=== PATIENT | female | born 1980 | race Caucasian/White ===

== ENCOUNTER 2018-04-28 08:32 | Inpatient (IN) ==
--- NOTE | 2018-04-28 09:20 | P.HPOB ---
MATH AND PHYSICS INSTRUCTOR - Consult Note Patient Name: Emmy Philip Date of : 84 Patient Status: Clinical Attending Provider: Robi Charles MD Date: 0900 Initialization Date: 04/15/18 18:24 History of Present Illness Consult date: 04/15/18 Reason for Consult: Repeat Primary Care Physician: [facility] Chief Complaint: BTL History of Present Illness: 38-year-old at 39 weeks initially wanted a now she is requesting a repeat delivery declines desiring tubal sterilization. This has been uncomplicated she did have one episode of chest pain she was seen in triage and subsequently had cardiac monitoring workup was negative. Her previous delivery for a macrosomic infant and history of preeclampsia currently on baby aspirin she is aware are made aware today to stop as soon as possible. Review of Systems All other systems reviewed negative except as stated in HPI PMFSH - History History Provided By: Patient - Surgical History Surgical History: Surgical History (Last Updated 04/03/18 @ 14:33 by Jewell Araiza) Hx of section S/P dilatation and curettage - Tobacco History Second Hand Smoke Exposure: No Smoking Status: Never smoker - Alcohol History How Often Do You Have a Drink Containing Alcohol: Never - Substance Use History Substance History: No History of Abuse Medications and Allergies Allergies Allergy/AdvReac Type Severity Reaction Status Date / Time No Known Allergies Allergy Unverified 04/03/18 12:55 Exam - Constitutional no acute distress - Routine HEENT Exam Head: Present: normocephalic ENT: Present: mucous membranes moist - Routine Respiratory Exam Present: CTA bilaterally - Routine Cardiovascular Exam Present: RRR - Routine Abdominal Exam Present: soft Comments: Gravid reports good movements - Routine Extremities Exam Present: calf tenderness - Routine Skin Exam Present: intact - Routine Neurological Exam Present: alert, oriented X3 Assessment and Plan - Diagnosis (1) Previous delivery affecting Code(s): O34.219 - Maternal care for unspecified type scar from previous delivery Status: Acute (2) 39 weeks gestation of Code(s): Z3A.37 - 39 weeks gestation of Status: Acute - Plan Alternatives benefits complications discussed patient expressed verbal understanding preop Intra-Op and postop expectations reviewed patient is scheduled for April 28, 2018 at 10:30 AM.
[2018-04-28] MEDS ORDERED: ceFAZolin 2 GM Premix Inj 2 GM/50 ML PIGGYBACK IV.SIG PRN (09:21)
[2018-04-28] MEDS ORDERED: Citric Acid/Sodium Citrate Liq 30 ML UDC PO SCH (09:30)
[2018-04-28 09:32] LABS: Baso % (Auto) 0.3 % (0.0-2.0); Eos # (Auto) 0.1 th/mm3 (0.0-0.4); Eos % (Auto) 0.9 % (0.0-4.0); Hematocrit 39.2 % (35.0-46.0); Hemoglobin 13.4 gm/dL (11.6-15.3); Lymph # (Auto) 1.9 th/mm3 (1.0-4.8); Lymph % (Auto) 17.9 % (9.0-44.0); Mean Corpuscular HGB Conc 34.1 % (32.0-36.0); Mean Corpuscular Volume 96.7 fL (80.0-100.0); Mean Platelet Volume 8.2 fL (7.0-11.0); Mono # (Auto) 0.8 th/mm3 (0.0-0.9); Mono % (Auto) 7.6 % (0.0-8.0); Neut # (Auto) 7.6 th/mm3 (1.8-7.7); Neut % (Auto) 73.3 % (16.0-70.0); Platelet Count 218 th/mm3 (150-450); Red Blood Count 4.05 mil/mm3 (4.00-5.30); Red Cell Distribution Width 15.9 % (11.6-17.2); White Blood Count 10.4 th/mm3 (4.0-11.0)
[2018-04-28] MEDS ORDERED: Morphine Sulfate PF Inj 5 MG/10 ML Ampul ONE (09:40)
[2018-04-28 10:00] LABS: Bacteria,Urine Moderate /hpf; Bilirubin,Urine Negative (Negative); Clarity,Urine Cloudy (Clear); Color,Urine Yellow (Yellw/Straw); Glucose,Urine (UA) Negative (Negative); Leukocyte Esterase,Urine Negative (Negative); Mucus,Urine Few /lpf (Occasional); Nitrite,Urine Negative (Negative); Specific Gravity,Urine 1.017 (1.002-1.035); Squamous Epithelial Cell,Urine 80 /hpf (0-5)
[2018-04-28 10:05] LABS: Amphetamine Screen,Urine Neg (Neg); Barbiturate Screen,Urine Neg (Neg); Cannabinoid Screen,Urine Neg (Neg); Cocaine Screen,Urine Neg (Neg)
[2018-04-28 10:08] LABS: Opiate Screen,Urine Neg (Neg)
--- NOTE | 2018-04-28 12:42 | P.PN ---
Subjective Interval history: Patient was seen and examined and consented for delivery. Risks, benefits, and alternatives were discussed at length with the patient. Discussed risks of pain, infection, bleeding, injury to other organs like the bladder/bowel/nerves/vessels, injury to the baby, need for repeat operation, need for hysterectomy, need for blood transfusion, wound infection or breakdown. All the patient's questions were answered. We discussed that surgical risks increase with each subsequent surgery. Consent was signed. heart tones are reassuring. Physical Exam Vital signs: Vital Signs 04/28/18 09:11 04/28/18 09:12 Temperature 98.3 F Pulse Rate 101 H Respiratory Rate 16 Blood Pressure 119/80 Intake & Output 04/27/18 04/28/18 04/28/18 18:59 06:59 18:59 Weight 74.843 kg Other: Weight On Admission 74.843 kg Results - Labs CBC & Chem 7: 04/28/18 09:00 Laboratory Results - last 24 hr 04/28/18 04/28/18 04/28/18 08:40 08:40 09:00 WBC 10.4 RBC 4.05 Hgb 13.4 Hct 39.2 MCV 96.7 MCH 33.0 MCHC 34.1 RDW 15.9 Plt Count 218 MPV 8.2 Neut % (Auto) 73.3 H Lymph % (Auto) 17.9 [place] % (Auto) 7.6 Eos % (Auto) 0.9 Baso % (Auto) 0.3 Neut # (Auto) 7.6 Lymph # (Auto) 1.9 [place] # (Auto) 0.8 Eos # (Auto) 0.1 Baso # (Auto) 0.0 WBC Differential . Differential Comment Auto diff final Urine Color Yellow Urine Clarity Cloudy H Urine pH 6.0 Ur Specific [place] 1.017 Urine Protein Negative Urine Glucose (UA) Negative Urine Ketones Negative Urine Occult Blood Negative Urine Nitrate Negative Urine Bilirubin Negative Urine Urobilinogen Less than 2 Ur Leukocyte Esterase Negative Urine WBC 1 Ur Squamous Epith Cells 80 Urine Bacteria Moderate H Urine Mucus Few H Micro UA Comment Culture indicated Ur Microscopic Review Not Reportable Urine Culture Comments Culture indicated Urine Opiates Screen Neg Ur Barbiturates Screen Neg Ur Amphetamines Screen Neg U Benzodiazepines Scrn Neg Urine Cocaine Screen Neg U Cannabinoids Screen Neg Blood Type Blood Type Recheck Antibody Screen 04/28/18 09:00 WBC RBC Hgb Hct MCV MCH MCHC RDW Plt Count MPV Neut % (Auto) Lymph % (Auto) [place] % (Auto) Eos % (Auto) Baso % (Auto) Neut # (Auto) Lymph # (Auto) [place] # (Auto) Eos # (Auto) Baso # (Auto) WBC Differential Differential Comment Urine Color Urine Clarity Urine pH Ur Specific [place] Urine Protein Urine Glucose (UA) Urine Ketones Urine Occult Blood Urine Nitrate Urine Bilirubin Urine Urobilinogen Ur Leukocyte Esterase Urine WBC Ur Squamous Epith Cells Urine Bacteria Urine Mucus Micro UA Comment Ur Microscopic Review Urine Culture Comments Urine Opiates Screen Ur Barbiturates Screen Ur Amphetamines Screen U Benzodiazepines Scrn Urine Cocaine Screen U Cannabinoids Screen Blood Type AB Positive Blood Type Recheck Required Antibody Screen Negative
[2018-04-28] MEDS ORDERED: Acetaminophen 325 MG Tablet PO PRN (12:45)
[2018-04-28] MEDS ORDERED: Oxytocin 30 Units/500ml Premix 30 UNITS/500 ML BAG IV.SIG ONE (12:45)
[2018-04-28] MEDS ORDERED: Simethicone 80 MG Chew Tablet PO PRN (12:45)
--- NOTE | 2018-04-28 12:45 | P.OBDELI ---
Procedure Note Performed by: Libby López MD Procedure: Repeat Low Transverse Section Indication for Delivery: Desired elective repeat Informed Consent Obtained: For anesthesia, For procedure Confirmed Correct: Patient, Procedure, Site, Time-out taken Anesthesia: Spinal Medication Prior to Procedure: As documented in eMAR Monitoring During Procedure: Blood pressure monitoring, athletic monitor, monitor, Pulse oximetry Urinary Catheter: Inserted using sterile technique, ml urine output (200 cc clear urine) Sterile Preparation: Duraprep (Chloraprep) Position: Supine with wedge to left side - Operative Features Skin Incision: Pfannenstiel Uterine Incision: Low transverse w/knife / blunt ext Membranes Ruptured: Artificially, Appearance of fluid (clear) Presentation: Occiput anterior Status of Infant: Viable Placenta Delivered: Intact Medications: Antibiotics, Oxytocin Estimated blood loss (mL): 600 Procedure Tolerated: Well Maternal Condition: Stable Baby Condition: Stable - : Male (Apgars 8/9, 8#5oz.)
[2018-04-28] MEDS ORDERED: Naloxone Inj 0.4 MG/ML Vial IV.PUSH PRN (13:58)
[2018-04-28] MEDS ORDERED: Oxytocin 30 Units/500ml Premix 30 UNITS/500 ML BAG IV.SIG PRN (17:45)
[2018-04-28] MEDS ORDERED: Zolpidem Tartrate 5 MG Tablet PO PRN (21:00)
--- NOTE | 2018-04-29 03:04 | MP ---
cc: Libby López MD DATE OF OPERATION: 04/28/2018 PREOPERATIVE DIAGNOSES: 1. Intrauterine at 39 weeks. 2. Prior delivery. 3. Short maternal stature. POSTOPERATIVE DIAGNOSES: 1. Intrauterine at 39 weeks. 2. Prior delivery. 3. Short maternal stature. PROCEDURE PERFORMED: Repeat low transverse section with 2-layer closure and no extensions via Pfannenstiel skin incision. INDICATIONS: The patient is a 38-year-old G2, P1-0-0-1, who presented for elective repeat delivery. DESCRIPTION OF FINDINGS: A viable male infant in cephalic presentation, however, with a compound presentation and a nuchal cord with Apgars 8 and 9, weighing 8 pounds and 5 ounces. The patient had grossly normal maternal anatomy. SURGEON: Libby López MD ASSISTANTS: Mi Alves. SPECIMENS REMOVED: Placenta. ESTIMATED BLOOD LOSS: 600 mL URINE OUTPUT: 200 mL clear urine at the end of the procedure. DESCRIPTION OF PROCEDURE: After obtaining informed consent with risks, benefits, and alternatives discussed at length including but not limited to pain, infection, bleeding, injury to other organs like the bladder, bowel, nerves and vessels, injury to the baby, need for repeat operation, need for blood transfusion, need for hysterectomy, wound infection or breakdown, and other possible complications, the patient was taken to the operating room with reassuring heart tones. She underwent spinal anesthesia without difficulty and was placed in the dorsal supine position with a leftward tilt. Reassuring heart tones were confirmed, and the patient was prepped and draped in the normal sterile fashion after placement of a Brooks catheter. A timeout procedure was performed and adequate anesthesia confirmed. After once again confirming adequate anesthesia, a Pfannenstiel skin incision was made through the patient's previous incision with the scalpel and carried down to the level of the fascia with the Bovie cautery. The fascia was nicked in the midline, and the fascial incision extended laterally with the curved Lemos scissors. The Faizan clamps were applied to the superior aspect of the fascial incision, was dissected off the underlying rectus muscles bluntly and with the curved Lemos scissors. The Kochers were applied to the inferior aspect of the fascial incision, was dissected off in a similar fashion. The rectus muscles were in midline and the peritoneum entered bluntly. The peritoneal incision was extended bluntly. The bladder blade was inserted and the vesicouterine peritoneum identified, grasped with pickups, and entered sharply with the Metzenbaum scissors. This incision was extended laterally and the bladder flap created digitally. Lower uterine segment was thinned out with a scalpel and the hysterotomy created bluntly. The hysterotomy was extended bluntly. The vertex was elevated to the level of hysterotomy, and a compound hand was reduced after atraumatic delivery of the head. A nuchal cord was reduced and the remainder of the infant delivered without difficulty. The was vigorous on the field, so cord clamp was delayed for 45 seconds. Cord blood was obtained for the nursery. The placenta was removed manually, and the uterus was exteriorized and cleared of all clots and debris. The hysterotomy was repaired with a #1 Vicryl in a running locked fashion. A second layer of the same suture was used in imbricating fashion after which excellent hemostasis was noted. The uterus was returned to the abdomen and the gutters cleared of all clots and debris. The hysterotomy was reinspected and noted to be hemostatic. The peritoneum was reapproximated with 2-0 Vicryl in a running fashion. The rectus muscles were examined and noted to be hemostatic. The fascia was reapproximated with #1 Vicryl in a running fashion. No fascial defects were noted. The subcutaneous tissue was irrigated with an antibiotic solution and the subcutaneous tissue closed with 2-0 Vicryl. The skin edges were reapproximated with 3-0 Monocryl in a subcuticular fashion. Excellent hemostasis and cosmesis were noted. Dermabond was placed, and the patient was given an abdominal binder. All sponge, lap, and needle counts were correct x2. I performed the entire procedure myself. MD KENNETH Mathew/isaac , 02:48 AM , 02:55 AM
[2018-04-29 05:54] LABS: Baso % (Auto) 0.1 % (0.0-2.0); Eos # (Auto) 0.1 th/mm3 (0.0-0.4); Eos % (Auto) 0.4 % (0.0-4.0); Hematocrit 31.9 % (35.0-46.0); Hemoglobin 10.5 gm/dL (11.6-15.3); Lymph # (Auto) 2.5 th/mm3 (1.0-4.8); Lymph % (Auto) 18.2 % (9.0-44.0); Mean Corpuscular HGB Conc 33.1 % (32.0-36.0); Mean Corpuscular Hemoglobin 32.2 pg (27.0-34.0); Mean Corpuscular Volume 97.3 fL (80.0-100.0); Mean Platelet Volume 8.5 fL (7.0-11.0); Mono % (Auto) 7.7 % (0.0-8.0); Neut % (Auto) 73.6 % (16.0-70.0); Platelet Count 186 th/mm3 (150-450); Red Blood Count 3.28 mil/mm3 (4.00-5.30); Red Cell Distribution Width 15.5 % (11.6-17.2); White Blood Count 13.6 th/mm3 (4.0-11.0)
[2018-04-29] MEDS ORDERED: Diphtheria/Tetanus/Pertussis Vaccine Inj 0.5 ML Syringe IM ONE (08:50)
--- NOTE | 2018-04-29 09:54 | P.PNOB ---
Subjective Post op day: 1 Interval history: Postoperative day #1 AFVSS overnight. Incision not draining. Decreased lochia. Denies dysuria. No breast tenderness. Appetite good. No nausea or vomiting. Positive flatus. Ambulating well. Denies calf pain or shortness of breath. Otherwise, she is doing well this morning and has no other complaints. Objective Vital Signs/I&O: Vital Signs 04/28/18 12:45 04/28/18 13:00 04/28/18 13:15 Temperature 97.6 F Pulse Rate 71 71 72 Respiratory Rate 16 16 16 Blood Pressure 105/64 97/52 L 106/51 L 04/28/18 13:30 04/28/18 14:50 04/28/18 21:00 Temperature 97.6 F 97.6 F 98.3 F Pulse Rate 75 74 80 Respiratory Rate 16 20 18 Blood Pressure 110/59 L 124/77 142/78 H 04/29/18 00:00 04/29/18 02:00 04/29/18 04:00 Temperature 98.2 F 98.2 F Pulse Rate 93 H 81 Respiratory Rate 20 18 18 Blood Pressure 116/79 121/67 04/29/18 05:00 04/29/18 07:35 Temperature 97.7 F Pulse Rate 86 Respiratory Rate 18 16 Blood Pressure 88/65 L Intake & Output 04/28/18 04/29/18 04/29/18 18:59 06:59 18:59 Intake Total 1000 / 1000 1000 / 1000 Balance 1000 / 1000 1000 / 1000 Weight 74.843 kg Intake: IV 1000 / 1000 1000 / 1000 LR 1000 mL Inj 1,000 ML @ 100 1000 / 1000 1000 / 1000 mls/hr IV.CONT .Q10H [facility] Rx#: [id number] Other: Weight On Admission 74.843 kg Result Diagrams: 04/29/18 05:41 Objective Remarks: GENERAL: Well-nourished, well-developed patient. CARDIOVASCULAR: Regular rate and rhythm without murmurs, gallops, or rubs. RESPIRATORY: Breath sounds equal bilaterally. No accessory muscle use. ABDOMEN/GI: Abdomen soft, non-tender, bowel sounds present. Incision: Clean, dry and intact. Fundus: Firm, non-tender at umbilicus. GENITOURINARY: Light to moderate bleeding. EXTREMITIES: No cyanosis or edema, non-tender, without signs of DVT. Medications and IVs: Active Medications Acetaminophen (Tylenol) 650 mg PO Q6H PRN PRN Reason: PAIN SCALE 1 TO 2 Citric Acid/Sodium Citrate (Sodium Citrate/Citric Acid Liq) 30 ml PO MILITARY NURSE [facility] Stop: 05/02/18 09:29 Last Admin: 04/28/18 10:17 Dose: 30 ml Diphenhydramine HCl (Benadryl Inj) 25 mg IV.PUSH Q6H PRN PRN Reason: MILD TO MODERATE ITCHING Stop: 04/29/18 13:57 Diphenhydramine HCl (Benadryl) 50 mg PO Q6H PRN PRN Reason: MILD TO MODERATE ITCHING Stop: 04/29/18 13:57 Cefazolin Sodium/Dextrose (Ancef 2 Gm Premix Inj) 2 gm in 50 mls @ 100 mls/hr IV.SIG MILITARY NURSE PRN PRN Reason: ON-CALL Stop: 05/02/18 09:20 Last Admin: 04/28/18 11:38 Dose: 100 mls/hr Lactated Ringer's (Lr 1000 Ml Inj) 1,000 mls @ 150 mls/hr IV.CONT .Q6H40M [facility] Last Admin: 04/29/18 06:31 Dose: Not Given Lactated Ringer's (Lr 1000 Ml Inj) 1,000 mls @ 100 mls/hr IV.CONT .Q10H [facility] Stop: 04/29/18 13:44 Last Admin: 04/29/18 06:30 Dose: 100 mls/hr Oxytocin (Pitocin 30 Units/Ns 500 Ml Premix) 30 units in 500 mls @ 100 mls/hr IV.SIG UNSCH PRN PRN Reason: Heavy bleeding Ibuprofen (Motrin) 800 mg PO Q8H PRN PRN Reason: cramping Last Admin: 04/29/18 06:29 Dose: 800 mg Measles/Mumps/Rubella Vaccine Live (M-M-R Ii Vaccine Inj) 0.5 ml SQ .ONCE ONE Stop: 04/29/18 16:01 Miscellaneous Information ([facility]) 1 each OTHER UNSCH PRN PRN Reason: SEE LABEL COMMENTS Stop: 04/29/18 13:57 Miscellaneous Information ([facility]) 1 each OTHER UNSCH PRN PRN Reason: SEE LABEL COMMENTS Stop: 04/29/18 13:57 Naloxone HCl (Narcan Inj) 0.4 mg IV.PUSH UNSCH PRN PRN Reason: SEE LABEL COMMENTS Stop: 04/29/18 13:57 Ondansetron HCl (Zofran Odt) 4 mg PO Q6H PRN PRN Reason: NAUSEA OR VOMITING Ondansetron HCl (Zofran Inj) 4 mg IV.PUSH Q6H PRN PRN Reason: NAUSEA OR VOMITING Oxycodone/Acetaminophen (Percocet 5/325 Mg) 1 tab PO Q4H PRN PRN Reason: PAIN SCALE 3 TO 5 Oxycodone/Acetaminophen (Percocet 5/325 Mg) 2 tab PO Q4H PRN PRN Reason: PAIN SCALE 6 TO 10 Senna/Docusate Sodium (Nuha-Colace) 2 tab PO Q12H PRN PRN Reason: CONSTIPATION Simethicone (Mylicon Chew) 80 mg PO QID PRN PRN Reason: FLATULENCE Sodium Chloride (Ns Flush) 2 ml IV.FLUSH PRN PRN PRN Reason: FLUSH AFTER USING IV ACCESS Sodium Chloride (Ns Flush) 2 ml IV.FLUSH BID JENNIFER Last Admin: 04/29/18 08:25 Dose: Not Given Zolpidem Tartrate (Ambien) 5 mg PO HS PRN PRN Reason: INSOMNIA Assessment and Plan - Plan 38y/o female who is POD#1 s/p CXN. -Continue routine care. -Percocet and Motrin PRN pain. -Encouraged OOB. Advised pelvic rest for 6 wks. Will need a f/u appt. in 1 wk for incision check. -D/c likely tomorrow wdw Dr. López
[2018-04-29] MEDS ORDERED: Measles/Mumps/Rubella Vaccine Inj 0.5 ML Vial SQ ONE (16:00)
[2018-04-29] MEDS: Senna/Docusate Sodium 8.6/50 MG Tablet PO PRN (22:20)
[2018-04-30] MEDS: Ibuprofen 400 MG Tablet PO PRN ×3 (06:07→21:31)
--- NOTE | 2018-04-30 08:30 | P.PNOB ---
Subjective Post op day: 2 Interval history: Postoperative day #2 AFVSS overnight. Incision not draining. Decreased lochia. Denies dysuria. No breast tenderness. Appetite good. No nausea or vomiting. Positive flatus. Ambulating well. Denies calf pain or shortness of breath. Otherwise, she is doing well this morning and has no other complaints. Objective Vital Signs/I&O: Vital Signs 04/29/18 20:00 Temperature 98.2 F Pulse Rate 88 Respiratory Rate 18 Blood Pressure 119/71 Result Diagrams: 04/29/18 05:41 Objective Remarks: General: Alert, well appearing, in no acute distress Skin: Warm and dry HEENT: Atraumatic. Moist mucus membranes Cardiac: Regular rate and rhythm without murmur Pulmonary: No increased work of breathing. Clear to auscultation bilaterally with good air movement. Abdominal: Non-tender. + Bowel sounds. uterus firm and below the umbilicus, incision is clean dry and intact Extremities: 2+ pedal pulses, mild b/l non-pitting edema, no calf tenderness Medications and IVs: Active Medications Acetaminophen (Tylenol) 650 mg PO Q6H PRN PRN Reason: PAIN SCALE 1 TO 2 Citric Acid/Sodium Citrate (Sodium Citrate/Citric Acid Liq) 30 ml PO TRAIN CONTROLLER [facility] Stop: 05/02/18 09:29 Last Admin: 04/28/18 10:17 Dose: 30 ml Cefazolin Sodium/Dextrose (Ancef 2 Gm Premix Inj) 2 gm in 50 mls @ 100 mls/hr IV.SIG TRAIN CONTROLLER PRN PRN Reason: ON-CALL Stop: 05/02/18 09:20 Last Admin: 04/28/18 11:38 Dose: 100 mls/hr Lactated Ringer's (Lr 1000 Ml Inj) 1,000 mls @ 150 mls/hr IV.CONT .Q6H40M [facility] Last Admin: 04/30/18 04:59 Dose: Not Given Oxytocin (Pitocin 30 Units/Ns 500 Ml Premix) 30 units in 500 mls @ 100 mls/hr IV.SIG UNSCH PRN PRN Reason: Heavy bleeding Ibuprofen (Motrin) 800 mg PO Q8H PRN PRN Reason: cramping Last Admin: 04/30/18 06:07 Dose: 800 mg Ondansetron HCl (Zofran Odt) 4 mg PO Q6H PRN PRN Reason: NAUSEA OR VOMITING Ondansetron HCl (Zofran Inj) 4 mg IV.PUSH Q6H PRN PRN Reason: NAUSEA OR VOMITING Oxycodone/Acetaminophen (Percocet 5/325 Mg) 1 tab PO Q4H PRN PRN Reason: PAIN SCALE 3 TO 5 Oxycodone/Acetaminophen (Percocet 5/325 Mg) 2 tab PO Q4H PRN PRN Reason: PAIN SCALE 6 TO 10 Senna/Docusate Sodium (Nuha-Colace) 2 tab PO Q12H PRN PRN Reason: CONSTIPATION Last Admin: 04/29/18 22:20 Dose: 2 tab Simethicone (Mylicon Chew) 80 mg PO QID PRN PRN Reason: FLATULENCE Sodium Chloride (Ns Flush) 2 ml IV.FLUSH PRN PRN PRN Reason: FLUSH AFTER USING IV ACCESS Sodium Chloride (Ns Flush) 2 ml IV.FLUSH BID JENNIFER Last Admin: 04/30/18 00:31 Dose: Not Given Zolpidem Tartrate (Ambien) 5 mg PO HS PRN PRN Reason: INSOMNIA Assessment and Plan - Plan 38y/o female who is POD#2 s/p CXN. -Continue routine care. -Percocet and Motrin PRN pain. -Encouraged OOB. Advised pelvic rest for 6 wks. Will need a f/u appt. in 1 wk for incision check. -Plan for discharge tomorrow Care discussed with Dr. Charles
[2018-04-30] MEDS ORDERED: Acetaminophen/Codeine 300/30 MG Tablet PO PRN (09:09)
[2018-04-30] MEDS: Acetaminophen/Codeine 300/30 MG Tablet PO PRN ×4 (09:38→21:31)
[2018-05-01] MEDS: Acetaminophen/Codeine 300/30 MG Tablet PO PRN ×2 (03:48→11:58)
[2018-05-01] MEDS: Ibuprofen 400 MG Tablet PO PRN (07:09)
--- NOTE | 2018-05-01 08:42 | P.PNOB ---
Subjective Post op day: 3 Interval history: Patient's pain is well-controlled. Patient reports eating and drinking without any nausea or vomiting. Patient reports minimal bleeding. Patient has passed gas but no bowel movements. Patient is walking without lower extremity pain or shortness of breath. Objective Vital Signs/I&O: Vital Signs 04/30/18 19:40 Temperature 97.6 F Pulse Rate 93 H Respiratory Rate 18 Blood Pressure 92/71 L Result Diagrams: 04/29/18 05:41 Objective Remarks: GENERAL: Well-nourished, well-developed patient. CARDIOVASCULAR: Regular rate and rhythm without murmurs, gallops, or rubs. RESPIRATORY: Breath sounds equal bilaterally. No accessory muscle use. ABDOMEN/GI: Abdomen soft, non-tender, bowel sounds present. Incision: Clean, dry and intact. Fundus: Firm, non-tender at umbilicus. GENITOURINARY: Light to moderate bleeding. EXTREMITIES: No cyanosis or edema, non-tender, without signs of DVT. Medications and IVs: Active Medications Acetaminophen (Tylenol) 650 mg PO Q6H PRN PRN Reason: PAIN SCALE 1 TO 2 Acetaminophen/Codeine Phosphate (Tylenol W/Cod #3) 1 tab PO Q4H PRN PRN Reason: SEE DOSE INSTRUCTIONS Last Admin: 05/01/18 03:48 Dose: 1 tab Acetaminophen/Codeine Phosphate (Tylenol W/Cod #3) 2 tab PO Q4H PRN PRN Reason: SEE DOSE INSTRUCTIONS Citric Acid/Sodium Citrate (Sodium Citrate/Citric Acid Liq) 30 ml PO HEMATOLOGY ONCOLOGY CONSULTANT [facility] Stop: 05/02/18 09:29 Last Admin: 04/28/18 10:17 Dose: 30 ml Cefazolin Sodium/Dextrose (Ancef 2 Gm Premix Inj) 2 gm in 50 mls @ 100 mls/hr IV.SIG HEMATOLOGY ONCOLOGY CONSULTANT PRN PRN Reason: ON-CALL Stop: 05/02/18 09:20 Last Admin: 04/28/18 11:38 Dose: 100 mls/hr Lactated Ringer's (Lr 1000 Ml Inj) 1,000 mls @ 150 mls/hr IV.CONT .Q6H40M [facility] Last Admin: 04/30/18 23:38 Dose: Not Given Oxytocin (Pitocin 30 Units/Ns 500 Ml Premix) 30 units in 500 mls @ 100 mls/hr IV.SIG UNSCH PRN PRN Reason: Heavy bleeding Ibuprofen (Motrin) 800 mg PO Q8H PRN PRN Reason: cramping Last Admin: 05/01/18 07:09 Dose: 800 mg Ondansetron HCl (Zofran Odt) 4 mg PO Q6H PRN PRN Reason: NAUSEA OR VOMITING Ondansetron HCl (Zofran Inj) 4 mg IV.PUSH Q6H PRN PRN Reason: NAUSEA OR VOMITING Senna/Docusate Sodium (Nuha-Colace) 2 tab PO Q12H PRN PRN Reason: CONSTIPATION Last Admin: 04/29/18 22:20 Dose: 2 tab Simethicone (Mylicon Chew) 80 mg PO QID PRN PRN Reason: FLATULENCE Sodium Chloride (Ns Flush) 2 ml IV.FLUSH PRN PRN PRN Reason: FLUSH AFTER USING IV ACCESS Sodium Chloride (Ns Flush) 2 ml IV.FLUSH BID JENNIFER Last Admin: 04/30/18 21:32 Dose: Not Given Zolpidem Tartrate (Ambien) 5 mg PO HS PRN PRN Reason: INSOMNIA Assessment and Plan - Diagnosis (1) delivery delivered Code(s): O82 - Encounter for delivery without indication Status: Acute - Plan 38y/o female who is POD#3 s/p CXN. -Continue routine care. -Percocet and Motrin PRN pain. -Encouraged OOB. Advised pelvic rest for 6 wks. Will need a f/u appt. in 1 wk for incision check. -Plan for discharge today with fe/vit c/colace
[2018-05-01 09:30] VITALS: BP 135/71; PULSE 82; RESP 20; TEMP 97.9
[2018-05-01] MEDS: Senna/Docusate Sodium 8.6/50 MG Tablet PO PRN (11:58)
== END 2018-05-01 14:15 | disposition home or self-care (01) ==
LOC: H2E 08:32 → H1EA 13:52
PROVIDERS: ADMIT Obstetrics & Gynecology; ATTEND Obstetrics & Gynecology